=== PATIENT | female | born 1970 | race Caucasian/White ===

== ENCOUNTER → 2017-06-22 | Outpatient (CLI) | payer OTHER ==
--- NOTE | 2017-06-22 10:11 | Diagnostic Imaging Report ---
PROCEDURE: MRI lumbar spine. TECHNIQUE: Multiplanar, multisequence MRI of the lumbar spine was performed without contrast. INDICATION: Low back pain and left foot drop. COMPARISON: No prior studies are available for comparison. FINDINGS: Curvature and alignment of the lumbar spine is normal. The vertebral body heights are maintained. The marrow signal intensity is unremarkable. No geographic marrow lesion or compression fracture is identified. There is some disc desiccation noted at L3-L4 and L4-L5 levels. There is significant degenerative disc disease with disc space narrowing, desiccation and marginal osteophyte formation at the L5-S1 level. The conus is unremarkable at the L1 level. T12-L1: No central canal or neuroforaminal stenosis is identified. L1-L2: Unremarkable. L2-L3: Unremarkable. L3-L4: The central canal is widely patent. The right neural foramen is patent. There is a left posterolateral broad-based disc bulging resulting in mild left neuroforaminal narrowing. There are degenerative changes to the facets. L4-L5: Hypertrophic facet changes are noted. There is ligamentous thickening. The central canal is patent. There is broad-based disc/osteophyte complex narrowing the lateral recesses bilaterally. There is also moderate left neuroforaminal stenosis due to broad-based disc/osteophyte complex. L5-S1: Hypertrophic facet changes are noted. There is broad-based disc/osteophyte complex present. Mild trefoil narrowing of the canal is seen. There is moderate bilateral neuroforaminal stenosis. The paraspinous tissues are unremarkable. IMPRESSION: Multilevel lumbar spondylosis with multilevel lateral recess and neuroforaminal stenosis described level by level above. There is also mild trefoil narrowing of the canal at L5-S1. Dictated by: Dictated on workstation # [id number]
== END ==
LOC: RAD 08:36
PROVIDERS: ATTEND Nurse Practitioner
DX: M48.07 Spinal stenosis, lumbosacral region (principal); M47.816 Spondylosis without myelopathy or radiculopathy, lumbar region
CPT/HCPCS: 72148